=== PATIENT | female | born 1975 | race Caucasian/White ===

== ENCOUNTER 2016-08-11 11:05 | Emergency (ER) | payer BC ==
[2016-08-11 11:21] VITALS: BP 124/70
[2016-08-11] MEDS ORDERED: Fluorescein Sodium TOPICAL* 1 MG TEST ONE (11:24)
[2016-08-11] MEDS ORDERED: BSS OPTH.SOL* BTL ONE (11:24)
[2016-08-11] MEDS ORDERED: Tetracaine 0.5% OPTH.SOL 15ML* BTL ONE (11:26)
--- NOTE | 2016-08-11 11:46 | UC ---
Eye Complaint HPI - HPI Summary HPI Summary: Patient arrives to with CC of right lateral eye pain since 2 days ago which has been progressively getting worse. She states she has had a stye in the past , but this feels different based on the location and the fact that it is more painful the usual. She denies visual disturbances, health problems, MILLER or temporal pain. She wears contacts, but has not been wearing them since onset of pain. Pain is localized to the right lateral canthus of the upper eye lid and radiates upward to the eyebrow. There is noticeable swelling and redness but no injected conjunctiva. Denies other symptoms. She has been using warm compresses without relief. Denies trauma or known FB in the eye. - History of Current Complaint Chief Complaint: UCEye Stated Complaint: EYE ISSUE Hx Obtained From: Patient Hx Last Menstrual Period: 07/23/16 ?: No Onset/Duration: Gradual Onset Timing: Constant Severity Initially: Moderate Severity Currently: Moderate Pain Intensity: 5 Pain Scale Used: 0-10 Numeric Location of Injury: Eye Lid (upper) Character: Foreign Body Sensation Aggravating Factor(s): Contact Lens, Blinking Alleviating Factor(s): Nothing Associated Signs And Symptoms: Positive: Swelling - Risk Factors Penetrating Injury Risk Factor: Negative Globe Rupture Risk Factors: Negative Acute Glaucoma Risk Factors: Eye Inflammation Optic Artery Occlusion Risk Factors: Negative - Allergies/Home Medications Allergies/Adverse Reactions: Allergies Allergy/AdvReac Type Severity Reaction Status Date / Time Sulfa Drugs Allergy Intermediate Shortness Verified 08/11/16 11:10 of Breath Penicillins Allergy Unknown Unknown Verified 08/11/16 11:10 Reaction Details Home Medications: Home Medications Ferrous Sulfate [Feosol] 65 mg PO DAILY 08/11/16 [History Confirmed 08/11/16] Fluoxetine HCl [Prozac] 30 mg PO DAILY 08/11/16 [History Confirmed 08/11/16] Lisinopril [Zestril 5 MG-] 5 mg PO DAILY 08/11/16 [History Confirmed 08/11/16] PMH/Surg Hx/FS Hx/Imm Hx Previously Healthy: Yes Endocrine History Of: Denies: Diabetes, Thyroid Disease Cardiovascular History Of: Reports: Hypertension Denies: Cardiac Disorders Respiratory History Of: Denies: COPD, Asthma GI/ History Of: Denies: Ulcer - Surgical History Surgical History: Yes Surgery Procedure, Year, and Place: Urinary stricture 1974 , left arm nerve release 1991. C section 2004, Gallbladder 2006, C section 2007, Gastric sleeve 2011 - Family History Known Family History: Positive: Hypertension - Social History Occupation: Employed Full-time Lives: With Family Alcohol Use: Rare Substance Use Type: None Smoking Status (MU): Never Smoked Tobacco - Immunization History Most Recent Influenza Vaccination: fall 2015 Review of Systems Constitutional: Negative Skin: Rash Eyes: Eye Redness - and swelling Respiratory: Negative Cardiovascular: Negative Gastrointestinal: Negative Neurovascular: Negative Musculoskeletal: Negative All Other Systems Reviewed And Are Negative: Yes Physical Exam Triage Information Reviewed: Yes Appearance: Well-Appearing, Well-Nourished Vital Signs: Initial Vital Signs Temp 97.3 F 08/11/16 11:14 Pulse 81 08/11/16 11:14 Resp 16 08/11/16 11:14 BP 124/70 08/11/16 11:14 Pulse Ox 98 08/11/16 11:14 Vital Signs Reviewed: Yes Eyes: Positive: Conjunctiva Clear, Other: - right lateral canthus swelling with erythema. painful to palpation ENT Exam: Normal Dental Exam: Normal Neck exam: Normal Neck: Positive: Nontender Respiratory: Positive: Chest non-tender, Lungs clear Cardiovascular Exam: Normal Neurological Exam: Normal Neurological: Positive: Alert Psychological Exam: Normal Psychological: Positive: Normal Response To Family, Age Appropriate Behavior Skin Exam: Normal Procedures - Eye Procedure Alcaine Drops Administered: Yes - tetracaine applied with flouroscein stain. no FB seen. Eye Complaint Course/Dx - Course Course Of Treatment: Pain with swelling and erythema noted over lateral canthus of right upper eye lid radiating to the eyebrow. previous stye. patient wears contacts but has not used them since onset of pain. fluoroscein with vicente lamp used - no FB seen. patient is treated for stye based on signs and sxs. encouraged warm compresses to area, polymyxin drops given to aid in concurrent bacterial cause and follow up with optho if symptoms become worse. no contact use until dissipation of pain at which time contacts should be switched out for new ones. Throw away current eye makeup and mascara. - Differential Dx/Diagnosis Differential Diagnosis/HQI/PQRI: Conjunctivitis, Foreign Body, Other - chalazion , hordeolum Provider Diagnoses: Hordeolum Discharge - Discharge Plan Condition: Stable Disposition: HOME Prescriptions: Polymyx/Trimethoprim OPTH* [Polytrim OPHTH*] 1 drop RIGHT EYE Q3H #1 btl Patient Education Materials: Kianna (ED) Referrals: Jeovany Siddiqui MD [Primary Care Provider] - Additional Instructions: Both internal and external hordeola can be treated with warm compresses, placed off and on for about 15 minutes at a time approximately four times per day. I am also giving you an antibiotic drop to aid in improvement of symptoms. 1-2 drops 6 times daily for 5-7 days. If symptoms become worse, come back to UC or go see an patient financial representative. This will likely take about 1 week to improve completely. Take tylenol or ibuprofen for relief of pain and inflammation. if you notice any visual disturbances, come back to UC immediately.
== END 2016-08-11 11:46 | disposition home or self-care (01) ==
LOC: UCEAST 11:05
DX: H00.019 Hordeolum externum unspecified eye, unspecified eyelid (principal); I10 Essential (primary) hypertension; Z88.0 Allergy status to penicillin; Z88.2 Allergy status to sulfonamides
CPT/HCPCS: 99212; A9270-GY; G0463

== ENCOUNTER 2017-10-12 02:35 | Emergency (ER) | payer BC ==
[2017-10-12] MEDS ORDERED: HYDROcodone/ACETAMIN 5-325 MG* 1 TAB PO ONE (03:05)
[2017-10-12] MEDS ORDERED: predniSONE TAB* 20 MG PO ONE (03:06)
[2017-10-12 05:53] VITALS: BP 148/91
--- NOTE | 2017-10-12 06:55 | ED ---
Cee Richardson Gabriel, scribed for Artemio Bravo MD on 10/12/17 at 0306 . Complex/Multi-Sys Presentation - HPI Summary HPI Summary: This patient is a 42 year old F presenting to [facility] c/o left sided facial/jaw pain that has been intermittent for 3 weeks. The patient rates the pain 8.5/10 in severity and states it radiates throughout the left side of her face. Symptoms aggravated by movement of the face. Symptoms alleviated by nothing, pt is taking 1000 mg of ibuprofen with no relief. Patient denies fever. Pt saw her dentist but they couldnt see anything that looked pathological but they did adjust the crown. She recently had dental work but on the opposite side of her face. - History Of Current Complaint Chief Complaint: EDGeneral Time Seen by Provider: 10/12/17 02:49 Hx Obtained From: Patient Onset/Duration: Lasting Weeks, Still Present Timing: Intermittent, Lasting: Severity Currently: Moderate Severity Initially: Severe Associated Signs And Symptoms: Positive: Other - facial and jaw pain on the left side. Negative: Fever - Allergies/Home Medications Allergies/Adverse Reactions: Allergies Allergy/AdvReac Type Severity Reaction Status Date / Time Penicillins Allergy Unknown Verified 10/12/17 02:41 Reaction Details Sulfa (Sulfonamide Allergy Shortness Verified 10/12/17 02:41 Antibiotics) of Breath Home Medications: Home Medications Amphetamine/Dextroamph ER(NF) [Adderal XR (NF)] 30 mg PO DAILY 10/12/17 [ History Confirmed 10/12/17] PMH/Surg Hx/FS Hx/Imm Hx Endocrine/Hematology History: Denies: Hx Diabetes, Hx Thyroid Disease Cardiovascular History: Reports: Hx Hypertension Denies: Hx Auto Implanted Cardiovert Defib Respiratory History: Denies: Hx Asthma, Hx Chronic Obstructive Pulmonary Disease (COPD) GI History: Denies: Hx Ulcer History: Denies: Hx Benign Prostatic Hyperplasia Psychiatric History: Reports: Hx Attention Deficit Hyperactivity Disorder, Hx Depression - Surgical History Surgery Procedure, Year, and Place: Urinary stricture 1974 , left arm nerve release 1991. C section 2004, Gallbladder 2006, C section 2007, Gastric sleeve 2011 Infectious Disease History: No Infectious Disease History: Denies: Hx Hepatitis, Hx Human Immunodeficiency Virus (HIV), Traveled Outside the [place] in Last 30 Days - Family History Known Family History: Positive: Hypertension - Social History Alcohol Use: Rare Substance Use Type: Reports: None Smoking Status (MU): Never Smoked Tobacco Review of Systems Negative: Fever Positive: Dental Pain, Other - facial pain All Other Systems Reviewed And Are Negative: Yes Physical Exam - Summary Physical Exam Summary: Appearance: Well-appearing, no distress, Well-nourished Skin: Warm, color reflects adequate perfusion Head: Normal Head/Face inspection Eyes: Conjunctiva clear ENT: mild TTP in the maxillary region. There is no swelling, no redness, no warmth, oral pharynx is clear, no lymphadenopathy; dentition normal Neck: Supple, no nodes, no JVD. Respiratory: Lungs clear, Normal breath sounds, no respiratory distress Cardio: RRR, No murmur, pulses normal, brisk capillary refill Neuro: Alert, muscle tone normal, facial symmetry, speech normal, sensory/motor intact Psychological: Normal Triage Information Reviewed: Yes Vital Signs On Initial Exam: Initial Vitals Temp Pulse Resp BP Pulse Ox 97.9 F 82 18 179/113 100 10/12/17 02:36 10/12/17 02:36 10/12/17 02:36 10/12/17 02:36 10/12/17 02:36 Vital Signs Reviewed: Yes Diagnostics - Vital Signs Vital Signs Temp Pulse Resp BP Pulse Ox 10/12/17 02:36 97.9 F 82 18 179/113 100 - Laboratory Lab Results: Lab Results 10/12/17 Range/Units 03:55 ESR 11 (0-14) mm/Hr Lab Statement: Any lab studies that have been ordered have been reviewed, and results considered in the medical decision making process. - CT CT Maxillofacial CT Interpretation Completed By: Radiologist - no evidence of acute pathology. Stable left maxillary sinus retention cyst or polyp Re-Evaluation - Re-Evaluation First Eval Re-Evaluation Time: 05:36 Change: Improved Comment: Pt symptoms improved with PO analgesia. Pt symptoms consistent with trigeminal neuralgia. Will start carbamazepine with Neurology f/u. Complex Multi-Symp Course/Dx - Diagnoses Differential Diagnoses/HQI/PQRI: CVA, Metabolic Abnormality Provider Diagnoses: Trigeminal neuralgia Discharge - Sign-Out/Discharge Documenting (check all that apply): Discharge/Admit/Transfer - Discharge Plan Condition: Improved Disposition: HOME Prescriptions: Carbamazepine 100 mg PO DAILY #7 tab.chew Ibuprofen TAB* [Motrin TAB* 800 MG] 800 mg PO Q6H PRN #15 tab PRN Reason: Pain predniSONE TAB* [Deltasone 20 MG TAB*] 40 mg PO DAILY 3 Days #6 tab traMADol TAB* [Ultram*] 50 mg PO Q6HR PRN #12 tab MDD 200 mg PRN Reason: Pain Patient Education Materials: Trigeminal Neuralgia (ED) Referrals: Maricruz Loo MD [Primary Care Provider] - 2 Days - Billing Disposition and Condition Condition: IMPROVED Disposition: Home The documentation as recorded by the Cee lu Gabriel accurately reflects the service I personally performed and the decisions made by Lawrence tubbs Omari A, MD.
--- NOTE | 2017-10-12 07:50 | RAD ---
HISTORY: left facial pain COMPARISONS: None TECHNIQUE: Multiple contiguous axial CT scans were obtained of the face without intravenous contrast, with coronal and sagittal multiplanar reformations. FINDINGS: BONES: There is no displaced fracture or dislocation. The orbital rim is intact. The zygomatic arch is intact. The pterygoid plates are intact. ORBITS: The globes are round. The optic nerves are symmetric. The extraocular musculature is normal. There is no post septal or intraconal inflammatory change. There is no retrobulbar hematoma. PARANASAL SINUSES: There is a mucous retention cyst versus polypoid mucosal thickening of the left maxillary sinus. The nasal septum is deviated to the left. BRAIN AND SOFT TISSUE: Unremarkable. OTHER: None. IMPRESSION: MILD SINUS MUCOSAL INFLAMMATORY DISEASE, WITHOUT AIR-FLUID LEVEL TO SUGGEST ACUTE SINUSITIS.
== END 2017-10-12 05:51 | disposition home or self-care (01) ==
LOC: ED 02:35
DX: G50.0 Trigeminal neuralgia (principal); R51 Headache; R68.84 Jaw pain
CPT/HCPCS: 36415; 70486; 85652; 99282; J7512

== ENCOUNTER 2017-12-03 14:13 | Emergency (ER) | payer BC ==
[2017-12-03] MEDS ORDERED: traMADol TAB* 50 MG PO ONE (16:27)
[2017-12-03] MEDS ORDERED: predniSONE TAB* 5 MG PO ONE (16:28)
[2017-12-03 18:01] VITALS: BP 121/84
--- NOTE | 2017-12-04 05:57 | ED ---
Neurological HPI - HPI Summary HPI Summary: Patient is a 42-year-old female presenting to the ED with left-sided trigeminal neuralgia exacerbation since yesterday. She was diagnosed approximately 6 weeks ago in the ED with trigeminal neuralgia. She has never had this before. She endorses pain to the left side of the forehead left cheek and left lower jawline. Symptoms are worse with touch and cold items, better with her own tramadol medication however it does not improve completely. Episodes are intermittent lasting several seconds to minutes. Denies any headache. She was placed on Tegretol 200 a.m. and 200 p.m. but was later changed by her PCP to 200 a.m. and 400 p.m. During her ED course, she was also given a short course of steroids. She states she has been asymptomatic times approximate 6 weeks to when she began to flare up again. She has not taken an excess dose of her Tegretol for fear of overdosing. She denies any other symptoms. Denies any tearing from the eye. She continues to be able to eat and drink, stating she must heat softer and warmer foods. She has a neurology follow-up in 3 months. - History of Current Complaint Chief Complaint: EDFacialInjury Stated Complaint: FACIAL PAIN Time Seen by Provider: 12/03/17 14:48 Hx Obtained From: Patient Hx Last Menstrual Period: 07/23/16 Onset/Duration: Sudden Onset Timing: Intermittent Episodes Lasting: Onset Severity: Moderate Current Severity: Moderate Neurological Deficit Location: Facial - left sided only Pain Intensity: 7 Pain Scale Used: 0-10 Numeric Character: Throbbing - and pressure to the left side of the face Aggravating: Stress - and touch Alleviating: Other - medications - Allergy/Home Medications Allergies/Adverse Reactions: Allergies Allergy/AdvReac Type Severity Reaction Status Date / Time Penicillins Allergy Unknown Verified 10/21/17 07:40 Reaction Details Sulfa (Sulfonamide Allergy Shortness Verified 10/21/17 07:40 Antibiotics) of Breath PMH/Surg Hx/FS Hx/Imm Hx Previously Healthy: Yes Endocrine/Hematology History: Denies: Hx Diabetes, Hx Thyroid Disease Cardiovascular History: Reports: Hx Hypertension Denies: Hx Auto Implanted Cardiovert Defib, Hx Pacemaker/ICD Respiratory History: Denies: Hx Asthma, Hx Chronic Obstructive Pulmonary Disease (COPD) GI History: Denies: Hx Ulcer History: Denies: Hx Benign Prostatic Hyperplasia, Hx Renal Disease Sensory History: Denies: Hx Hearing Aid Psychiatric History: Reports: Hx Attention Deficit Hyperactivity Disorder, Hx Depression Denies: Hx Panic Disorder - Surgical History Surgery Procedure, Year, and Place: Urinary stricture 1974 ,. left arm nerve release 1991. C section 2004,. Gallbladder 2007,. C section 2008,. Gastric sleeve 2012,. mirena implant (safe to 3t) - Immunization History Hx Pertussis Vaccination: No Immunizations Up to Date: Yes Infectious Disease History: No Infectious Disease History: Denies: Hx Hepatitis, Hx Human Immunodeficiency Virus (HIV), Traveled Outside the [place] in Last 30 Days - Family History Known Family History: Positive: Hypertension - Social History Occupation: Employed Full-time Lives: With Family Alcohol Use: Rare Hx Substance Use: No Substance Use Type: Reports: None Hx Tobacco Use: No Smoking Status (MU): Never Smoked Tobacco Review of Systems Constitutional: Negative Negative: Fever, Chills, Fatigue Negative: Photophobia, Blurred Vision, Diplopia, Drainage Negative: Epistaxis, Dental Pain, Ear Ache Negative: Palpitations, Chest Pain Negative: Shortness Of Breath, Cough Negative: Arthralgia, Myalgia Neurological: Other - facial pain over trigeminal nerve paths All Other Systems Reviewed And Are Negative: Yes Physical Exam Triage Information Reviewed: Yes Vital Signs On Initial Exam: Initial Vitals Temp Pulse Resp BP Pulse Ox 97.8 F 96 20 142/113 100 12/03/17 14:25 12/03/17 14:25 12/03/17 14:25 12/03/17 14:25 12/03/17 14:25 Vital Signs Reviewed: Yes Appearance: Positive: Well-Appearing, Well-Nourished Skin: Positive: Warm, Skin Color Reflects Adequate Perfusion Head/Face: Positive: Normal Head/Face Inspection Eyes: Positive: EOMI, CONSTANTINO, Conjunctiva Clear Neck: Positive: Supple, Nontender, No Lymphadenopathy Respiratory/Lung Sounds: Positive: Clear to Auscultation Cardiovascular: Positive: RRR, Pulses are Symmetrical in both Upper and Lower Extremities Musculoskeletal: Positive: Strength/ROM Intact Neurological: Positive: Other - pain on light palpation to the left side of face , jaw line and forehead - Sukhdev Coma Scale Best Eye Response: 4 - Spontaneous Best Motor Response: 6 - Obeys Commands Best Verbal Response: 5 - Oriented Coma Scale Total: 15 Diagnostics - Vital Signs Vital Signs Temp Pulse Resp BP Pulse Ox 12/03/17 17:59 97.2 F 73 16 121/84 99 12/03/17 14:25 97.8 F 96 20 142/113 100 - Laboratory Lab Statement: Any lab studies that have been ordered have been reviewed, and results considered in the medical decision making process. Course/Dx - Course Course Of Treatment: During the course of treatment, the patient is evaluated for left-sided trigeminal neuralgia. She is tender on light palpation over maxillary branch and mandibular branch of the trigems, however ophthalmic branch is spared. She states this is intermittent and worse with touch and cold food items. She was diagnosed with this in the ED 6 weeks ago placed on Tegretol and a short course of steroids which improved her symptoms. She has remained asymptomatic until yesterday when her symptoms cleared up. she will likely benefit from another short course of steroids as well as increase her Tegretol to 200 mg 4 times daily. I have also refilled her tramadol as this has been eating her in her pain at home. She is okay with this plan and will follow-up with her PCP regarding further treatment and workup. - Differential Dx Differential Diagnoses Neuro: Positive: Temporal Arteritis, Transient Ischemic Attack, Vasovagal Reaction - Diagnoses Provider Diagnoses: Trigeminal neuralgia of left side of face Discharge - Sign-Out/Discharge Documenting (check all that apply): Patient Departure - Discharge Plan Condition: Stable Disposition: HOME Prescriptions: methylPREDNISolone [Medrol] 4 mg PO DAILY #4 tab.ds.pk traMADol TAB* [Ultram*] 50 mg PO Q8H PRN #12 tab MDD 3 PRN Reason: Pain Patient Education Materials: Trigeminal Neuralgia (ED) Referrals: Maricruz Loo MD [Primary Care Provider] - Additional Instructions: Please follow-up with your doctor as soon as possible Tegretol 4 times daily until follow-up Medrol Dosepak as prescribed - Billing Disposition and Condition Condition: STABLE Disposition: Home
== END 2017-12-03 17:59 | disposition home or self-care (01) ==
LOC: ED 14:13
DX: G50.0 Trigeminal neuralgia (principal); Z88.0 Allergy status to penicillin; Z88.2 Allergy status to sulfonamides
CPT/HCPCS: 99282; A9270-GY; J7512

== ENCOUNTER → 2018-06-11 15:54 | Emergency (ER) | payer BC ==
[~2018-06-11 15:54] MED LIST: Ciprofloxacin TAB* 500 MG PO ONE; Ketorolac INJ* 30 MG/ML 1 ML VIAL IV PUSH ONE; NS 0.9% 1000 ML** 1,000 ML IV ONE; Ondansetron INJ* 2 MG/ML VIAL IV ONE; Ondansetron ODT TAB* 4 MG PO ONE
--- NOTE | 2018-06-11 17:55 | ED ---
Abdominal Pain/Female - HPI Summary HPI Summary: 43-year-old female presents with sudden onset of mid abdominal cramping with nausea, anorexia, and diarrhea around midday 6 days ago. States pain is fairly constant and occasionally radiates through to her back. Worsens with eating. States she is having 4-5 episodes of loose to watery stools per day. States stool has been slightly dark in color. Patient has Mirena IUD and is currently spotting. Denies fever, chills, chest pain, shortness of breath, vomiting, blood in stool, dysuria, frequency, urgency, vaginal discharge, or dyspareunia. - History of Current Complaint Chief Complaint: EDAbdPain Stated Complaint: ABD PAIN Time Seen by Provider: 06/11/18 17:51 Hx Obtained From: Patient Hx Last Menstrual Period: 07/23/16 Pain Intensity: 7 Allergies/Adverse Reactions: Allergies Allergy/AdvReac Type Severity Reaction Status Date / Time Penicillins Allergy Unknown Verified 10/21/17 07:40 Reaction Details Sulfa (Sulfonamide Allergy Shortness Verified 10/21/17 07:40 Antibiotics) of Breath PMH/Surg Hx/FS Hx/Imm Hx Endocrine/Hematology History: Reports: Hx Anemia Denies: Hx Diabetes, Hx Thyroid Disease Cardiovascular History: Reports: Hx Hypertension Denies: Hx Coronary Artery Disease, Hx Pacemaker/ICD Respiratory History: Denies: Hx Asthma, Hx Chronic Obstructive Pulmonary Disease (COPD) GI History: Reports: Hx Gall Bladder Disease, Hx Gastroesophageal Reflux Disease Denies: Hx Cirrhosis, Hx Crohn's Disease, Hx Diverticulosis, Hx Gastrointestinal Bleed, Hx Obstructive Bowel, Hx Ulcer History: Reports: Hx Kidney Stones Denies: Hx Renal Disease Sensory History: Denies: Hx Hearing Aid Neurological History: Reports: Hx Nerve Disease - Trigeminal neuralgia Psychiatric History: Reports: Hx Attention Deficit Hyperactivity Disorder, Hx Depression Denies: Hx Panic Disorder - Surgical History Surgery Procedure, Year, and Place: Urinary stricture 1974 ,. left radial nerve release 1991. C section 2004,. Gallbladder 2007,. C section 2008,. Gastric sleeve 2012,. mirena implant (safe to 3t) Infectious Disease History: No Infectious Disease History: Denies: Hx Hepatitis, Hx Human Immunodeficiency Virus (HIV), Traveled Outside the [place] in Last 30 Days - Family History Known Family History: Positive: Hypertension - Social History Occupation: Employed Full-time Lives: With Family Alcohol Use: Rare Hx Substance Use: No Substance Use Type: Reports: None Hx Tobacco Use: No Smoking Status (MU): Never Smoked Tobacco Review of Systems Negative: Fever, Chills Negative: Palpitations, Chest Pain Negative: Shortness Of Breath, Cough Positive: Abdominal Pain, Diarrhea, Nausea. Negative: Vomiting Negative: dysuria, discharge, frequency, flank pain, hematuria, urgency Musculoskeletal: Negative Skin: Negative Neurological: Negative All Other Systems Reviewed And Are Negative: Yes Physical Exam - Summary Physical Exam Summary: GENERAL APPEARANCE: Well developed, obese, and cooperative, and appears to be in no acute distress. CARDIAC: Normal S1 and S2. No S3, S4 or murmurs. Rhythm is regular. There is no peripheral edema, cyanosis or pallor. Extremities are warm and well perfused. Capillary refill is less than 2 seconds. Peripheral pulses intact. LUNGS: Clear to auscultation without rales, rhonchi, wheezing or diminished breath sounds. ABDOMEN: Positive bowel sounds. Soft, nondistended. Mild RUQ and RLQ tenderness without guarding or rebound. No masses or hepatosplenomegally. No CVA tenderness. MUSKULOSKELETAL: ROM intact to all extremities. No joint erythema or tenderness. Normal muscular development. Normal gait. BACK: Examination of the spine reveals normal gait and posture, no spinal deformity or tenderness, decreased range of motion or muscular spasm. EXTREMITIES: No significant deformity or joint abnormality. No edema. NEUROLOGICAL: Awake, alert, oriented x 4. SKIN: Skin normal color, texture and turgor with no lesions or eruptions. Triage Information Reviewed: Yes Vital Signs On Initial Exam: Initial Vitals Temp Pulse Resp BP Pulse Ox 97.4 F 76 18 128/96 99 06/11/18 16:00 06/11/18 16:00 06/11/18 16:00 06/11/18 16:00 06/11/18 16:00 Vital Signs Reviewed: Yes Diagnostics - Vital Signs Vital Signs Temp Pulse Resp BP Pulse Ox 06/11/18 16:00 97.4 F 76 18 128/96 99 - Laboratory Result Diagrams: 06/11/18 18:31 06/11/18 18:31 Lab Statement: Any lab studies that have been ordered have been reviewed, and results considered in the medical decision making process. Re-Evaluation - Re-Evaluation First Eval Re-Evaluation Time: 19:45 Change: Improved Comment: Patient reports abdominal pain improved. Nausea subsided. No further episodes of diarrhea at this time. Reviewed lab work with patient. Urine still pending. Patient inquirying about radiological testing. Discussed at length the limited value of a plain x-ray as well as the risks and benefits of a CT scan which would be the more definitive study. Explained to patient that I have a low suspicion for an acute abdomen based on the findings so far and I feel a watchful waiting with close follow up with PCP is a reaonable approach however she states she would like to consider while waiting for the urine results. Abdominal Pain Fem Course/Dx - Course Course Of Treatment: 43-year-old female presents with sudden onset of mid abdominal cramping with nausea, anorexia, and diarrhea around midday 6 days ago. States pain is fairly constant and occasionally radiates through to her back. Worsens with eating. States she is having 4-5 episodes of loose to watery stools per day. States stool has been slightly dark in color. Patient has Mirena IUD and is currently spotting. Denies fever, chills, chest pain, shortness of breath, vomiting, blood in stool, dysuria, frequency, urgency, vaginal discharge, or dyspareunia. Afebrile. Vital signs stable. Exam reveals an obese adult female in no acute distress. She had some mild right upper and lower quadrant tenderness without rebound or guarding and otherwise unremarkable exam. Patient received 1 L normal saline, ondansetron 8 mg IV, and ketorolac 50 mg IV with improvement in her symptoms. CBC normal. CMP with a mildly elevated alkaline phosphatase of 111 but otherwise normal. CRP normal. Serum negative. Urinalysis showed 1+ protein, trace ketones , 3+ blood, 2+ leukocyte esterase, and 3+ white blood cells and red blood cells under high-power field suggestive of a possible UTI. Urine culture is pending. These results were reviewed with the patient and after extensive conversation regarding the risks and benefits of radiological evaluation patient is electing at this time for watchful waiting and follow up with her primary care provider within 5 days. I am going to treat her for possible UTI with ciprofloxacin 500 mg twice a day 5 days with first dose given in the emergency room. She was given 2 doses of ondansetron ODT 4 mg for home to use every 6 hours as needed for nausea or vomiting and also given a prescription for some additional tablets if needed. Anticipatory guidance and warning symptoms were reviewed with the patient. She verbalizes understanding and agrees with plan of care. - Diagnoses Provider Diagnoses: Acute abdominal pain, Diarrhea Discharge - Sign-Out/Discharge Documenting (check all that apply): Patient Departure Patient Received Moderate/Deep Sedation with Procedure: No - Discharge Plan Condition: Stable Disposition: HOME Prescriptions: Ciprofloxacin HCl 500 mg PO BID #9 tablet Ondansetron [Ondansetron Odt] 4 mg PO Q6HR PRN #6 tab.rapdis PRN Reason: Nausea/Vomiting Patient Education Materials: Acute Diarrhea (ED), Acute Abdominal Pain (ED) Referrals: Maricruz Loo MD [Primary Care Provider] - 5 Days Additional Instructions: Be sure to drink plenty of fluids. Avoid beverages containing caffeine or artificial sweeteners as these can worsen symptoms. Be sure to eat a well balanced diet. Boiled starches and cereals (potatoes, rice , cream of wheat, oatmeal) as well as food such as crackers, toast, bananas, soups and boiled vegetables are usually recommended if you are having watery diarrhea. Use an over the counter pain medication such as acetaminophen (Tylenol) or ibuprofen (Advil, Motrin) according to directions as needed for aches and pains. Follow up with your primary care provider within 5 days for recheck of symptoms. Seek immediate medical attention in the emergency room if you have fever greater than 100.5 F, have severe abdominal pain, persistent vomiting, blood in your vomit or stool, you become weak or dizzy, or have any worsening of symptoms. - Billing Disposition and Condition Condition: STABLE Disposition: Home
[2018-06-11 18:40] LABS: ABS Basophils 0.1 10^3/ul (0-0.2); ABS Eosinophils 1.6 10^3/ul (0-0.6); ABS Lymphocytes 2.2 10^3/ul (1.0-4.8); ABS Monocytes 0.4 10^3/ul (0-0.8); ABS Neutrophils 3.6 10^3/ul (1.5-7.7); ABS Nucleated RBC 0 10^3/ul; Eosinophil % 19.9 %; Hematocrit 42 % (35-47); Hemoglobin 14.6 g/dl (12.0-16.0); Lymphocyte % 27.9 %; Mean Corpuscular HGB Conc 34 g/dl (31-36); Mean Corpuscular Hemoglobin 33 pg (27-31); Mean Corpuscular Volume 96 fL (80-97); Mean Platelet Volume 7.4 fL (7.4-10.4); Nucleated Red Blood Cells % 0.1; Platelet Count 254 10^3/ul (150-450); Red Blood Count 4.41 10^6/ul (4.00-5.40); Red Cell Distribution Width 13 % (10.5-15); White Blood Count 7.9 10^3/ul (3.5-10.8)
[2018-06-11 18:58] LABS: ALT 14 U/L (7-52); AST 17 U/L (13-39); Albumin 4.2 g/dL (3.2-5.2); Albumin/Globulin Ratio 1.7 (1-3); Alkaline Phosphatase 111 U/L (34-104); Anion Gap 5 mmol/L (2-11); BUN/Creatinine Ratio 9.5 (8-20); Blood Urea Nitrogen 7 mg/dL (6-24); C Reactive Protein 6.58 mg/L (<8.01); CO2 Carbon Dioxide 27 mmol/L (22-32); Chloride 105 mmol/L (101-111); EGFR African American 103.2 (>60); EGFR Non-African American 85.3 (>60); Globulin 2.5 g/dL (2-4); Glucose 90 mg/dL (70-100); Potassium 4.1 mmol/L (3.5-5.0); Sodium 137 mmol/L (135-145); Total Protein 6.7 g/dL (6.4-8.9)
[2018-06-11 19:04] LABS: HCG Pregnancy < 0.60 mIU/mL
[2018-06-11 20:32] LABS: Urine Appearance Cloudy; Urine Bacteria Absent (Absent); Urine Bilirubin Negative (Negative); Urine Blood 3+ (Negative); Urine Color Yellow; Urine Glucose Negative (Negative); Urine Ketones Trace (Negative); Urine Nitrite Negative (Negative); Urine Protein 1+(30 mg/dL) (Negative); Urine Red Blood Cell 3+(>10/hpf) (Absent); Urine Specific Gravity 1.024 (1.010-1.030); Urine Squamous Epithelial Cell Present (Absent); Urine Urobilinogen Negative (Negative); Urine White Blood Cell 3+(>20/hpf) (Absent)
[2018-06-11 21:28] VITALS: BP 117/71
== END | disposition home or self-care (01) ==
LOC: ED 15:54
DX: R10.11 Right upper quadrant pain (principal); R10.31 Right lower quadrant pain; R19.7 Diarrhea, unspecified; R11.0 Nausea; Z32.02 Encounter for pregnancy test, result negative; Z97.5 Presence of (intrauterine) contraceptive device; Z88.0 Allergy status to penicillin; Z88.2 Allergy status to sulfonamides; Z90.49 Acquired absence of other specified parts of digestive tract; Z98.84 Bariatric surgery status
CPT/HCPCS: 36415; 80053; 81003; 81015; 83690; 84702; 85025; 86140; 87086; 96374; 96375; 99283; A9270-GY; J1885; J2405

== ENCOUNTER → 2018-06-17 15:03 | Emergency (ER) | payer BC ==
[~2018-06-17 15:03] MED LIST changes: +Al Hydrox/Mg Hydrox/Simet LIQ* 30 ML UDC PO ONE; -Ciprofloxacin TAB* 500 MG PO ONE; +Famotidine TAB* 20 MG PO ONE; -Ketorolac INJ* 30 MG/ML 1 ML VIAL IV PUSH ONE; -NS 0.9% 1000 ML** 1,000 ML IV ONE; -Ondansetron INJ* 2 MG/ML VIAL IV ONE; -Ondansetron ODT TAB* 4 MG PO ONE; +Pantoprazole TAB * 40 MG TAB PO ONE; +Sucralfate TAB* 1 GM PO ONE
[2018-06-17 16:13] LABS: ABS Basophils 0.1 10^3/ul (0-0.2); ABS Eosinophils 1.7 10^3/ul (0-0.6); ABS Lymphocytes 1.8 10^3/ul (1.0-4.8); ABS Monocytes 0.5 10^3/ul (0-0.8); ABS Neutrophils 5.2 10^3/ul (1.5-7.7); ABS Nucleated RBC 0 10^3/ul; Eosinophil % 18.4 %; Hematocrit 44 % (35-47); Hemoglobin 15.1 g/dl (12.0-16.0); Lymphocyte % 19.5 %; Mean Corpuscular HGB Conc 35 g/dl (31-36); Mean Corpuscular Hemoglobin 33 pg (27-31); Mean Corpuscular Volume 96 fL (80-97); Mean Platelet Volume 7.4 fL (7.4-10.4); Nucleated Red Blood Cells % 0; Platelet Count 271 10^3/ul (150-450); Red Blood Count 4.57 10^6/ul (4.00-5.40); Red Cell Distribution Width 12 % (10.5-15); White Blood Count 9.3 10^3/ul (3.5-10.8)
[2018-06-17 16:15] LABS: INR 0.97 (0.77-1.02)
[2018-06-17 16:29] LABS: ALT 16 U/L (7-52); AST 19 U/L (13-39); Albumin 4.3 g/dL (3.2-5.2); Albumin/Globulin Ratio 1.7 (1-3); Alkaline Phosphatase 100 U/L (34-104); Anion Gap 6 mmol/L (2-11); BUN/Creatinine Ratio 6.8 (8-20); Blood Urea Nitrogen 5 mg/dL (6-24); C Reactive Protein 2.71 mg/L (<8.01); CO2 Carbon Dioxide 28 mmol/L (22-32); Calcium 9.5 mg/dL (8.6-10.3); Chloride 104 mmol/L (101-111); EGFR African American 103.2 (>60); EGFR Non-African American 85.3 (>60); Globulin 2.6 g/dL (2-4); Glucose 97 mg/dL (70-100); Potassium 4.3 mmol/L (3.5-5.0); Sodium 138 mmol/L (135-145); Total Protein 6.9 g/dL (6.4-8.9)
[2018-06-17 16:34] LABS: HCG Pregnancy < 0.60 mIU/mL
--- NOTE | 2018-06-17 16:51 | ED ---
Abdominal Pain/Female - HPI Summary HPI Summary: Pt is a 43 y/o female who presents to the ED c/o abdominal pain. She began with a stomach virus 1.5 weeks ago. Pt was here 4 days ago with diffuse abdominal pain and bloating. A CT A/P was negative. 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 Her diffuse cramping and diarrhea has now subsided, however now pt has severe RUQ tenderness. The pain is rated a 9/10 in severity, radiates to her back, and is made worse with eating. She also c/o nausea but denies any reflux or urinary symptoms. Pt took a hydrocodone this morning. PMHx gallstone pancreatitis. PSHx cholecystectomy and sleeve gastrectomy. FHx ulcers. - History of Current Complaint Chief Complaint: EDAbdPain Stated Complaint: UPPER ABDOMINAL PAIN Time Seen by Provider: 06/17/18 16:46 Hx Obtained From: Patient Hx Last Menstrual Period: 07/23/16 Onset/Duration: Lasting Weeks - 1.5, Worse Since Timing: Constant Severity Currently: Severe Pain Intensity: 9 Pain Scale Used: 0-10 Numeric Location: Discrete At: RUQ Radiates: Yes Radiates to: Back Aggravating Factor(s): Food Alleviating Factor(s): Nothing Associated Signs and Symptoms: Positive: Back Pain, Nausea. Negative: Urinary Symptoms, Diarrhea Allergies/Adverse Reactions: Allergies Allergy/AdvReac Type Severity Reaction Status Date / Time Penicillins Allergy Unknown Verified 10/21/17 07:40 Reaction Details Sulfa (Sulfonamide Allergy Shortness Verified 10/21/17 07:40 Antibiotics) of Breath PMH/Surg Hx/FS Hx/Imm Hx Endocrine/Hematology History: Reports: Hx Anemia Denies: Hx Diabetes, Hx Thyroid Disease Cardiovascular History: Reports: Hx Hypertension Denies: Hx Auto Implanted Cardiovert Defib, Hx Coronary Artery Disease, Hx Pacemaker/ICD Respiratory History: Denies: Hx Asthma, Hx Chronic Obstructive Pulmonary Disease (COPD) GI History: Reports: Hx Gall Bladder Disease, Hx Gastroesophageal Reflux Disease Denies: Hx Cirrhosis, Hx Crohn's Disease, Hx Diverticulosis, Hx Gastrointestinal Bleed, Hx Obstructive Bowel, Hx Ulcer History: Reports: Hx Kidney Stones Denies: Hx Benign Prostatic Hyperplasia, Hx Renal Disease Sensory History: Denies: Hx Hearing Aid Neurological History: Reports: Hx Nerve Disease - Trigeminal neuralgia Psychiatric History: Reports: Hx Attention Deficit Hyperactivity Disorder, Hx Depression Denies: Hx Panic Disorder - Surgical History Surgery Procedure, Year, and Place: Urinary stricture 1974 ,. left radial nerve release 1991. 2004,. Gallbladder 2006,. 2007,. Gastric sleeve 2011,. mirena implant (safe to 3t) Infectious Disease History: No Infectious Disease History: Denies: Hx Hepatitis, Hx Human Immunodeficiency Virus (HIV), Traveled Outside the [place] in Last 30 Days - Family History Known Family History: Positive: Hypertension - Social History Alcohol Use: Rare Hx Substance Use: No Substance Use Type: Reports: None Hx Tobacco Use: No Smoking Status (MU): Never Smoked Tobacco Review of Systems Positive: Abdominal Pain - RUQ, Diarrhea - resolved, Nausea. Negative: Other - reflux Genitourinary: Negative Positive: Myalgia - radiates to back All Other Systems Reviewed And Are Negative: Yes Physical Exam - Summary Physical Exam Summary: Appearance: Well appearing, no pain distress Skin: warm, dry, reflects adequate perfusion Head/face: normal Eyes: EOMI, CONSTANTINO ENT: mucous membranes moist Neck: supple, non-tender Respiratory: CTA, breath sounds present Cardiovascular: RRR, pulses symmetrical, no LE edema Abdomen: non-tender, soft, palpable discomfort of right lower back Bowel Sounds: present Musculoskeletal: normal, strength/ROM intact Neuro: normal, sensory motor intact, A&Ox3 Triage Information Reviewed: Yes Vital Signs On Initial Exam: Initial Vitals Temp Pulse Resp BP Pulse Ox 97.1 F 82 19 142/98 99 06/17/18 15:12 06/17/18 15:12 06/17/18 15:12 06/17/18 15:12 06/17/18 15:12 Vital Signs Reviewed: Yes Diagnostics - Vital Signs Vital Signs Temp Pulse Resp BP Pulse Ox 06/17/18 15:12 97.1 F 82 19 142/98 99 - Laboratory Lab Results: Lab Results 06/17/18 06/17/18 06/17/18 Range/Units 15:57 15:57 15:57 WBC 9.3 (3.5-10.8) 10^3/ul RBC 4.57 (4.00-5.40) 10^6/ul Hgb 15.1 (12.0-16.0) g/dl Hct 44 (35-47) % MCV 96 (80-97) fL MCH 33 H (27-31) pg MCHC 35 (31-36) g/dl RDW 12 (10.5-15) % Plt Count 271 (150-450) 10^3/ul MPV 7.4 (7.4-10.4) fL Neut % (Auto) 56.2 % Lymph % (Auto) 19.5 % Bos[place] % (Auto) 5.0 % Eos % (Auto) 18.4 % Baso % (Auto) 0.9 % Absolute Neuts (auto) 5.2 (1.5-7.7) 10^3/ul Absolute Lymphs (auto) 1.8 (1.0-4.8) 10^3/ul Absolute Monos (auto) 0.5 (0-0.8) 10^3/ul Absolute Eos (auto) 1.7 H (0-0.6) 10^3/ul Absolute Basos (auto) 0.1 (0-0.2) 10^3/ul Absolute Nucleated RBC 0 10^3/ul Nucleated RBC % 0 INR (Anticoag Therapy) 0.97 (0.77-1.02) Sodium 138 (135-145) mmol/L Potassium 4.3 (3.5-5.0) mmol/L Chloride 104 (101-111) mmol/L Carbon Dioxide 28 (22-32) mmol/L Anion Gap 6 (2-11) mmol/L BUN 5 L (6-24) mg/dL Creatinine 0.74 (0.51-0.95) mg/dL Est GFR ( Amer) 103.2 (>60) Est GFR (Non-Af Amer) 85.3 (>60) BUN/Creatinine Ratio 6.8 L (8-20) Glucose 97 (70-100) mg/dL Lactic Acid (0.5-2.0) mmol/L Calcium 9.5 (8.6-10.3) mg/dL Total Bilirubin 0.60 (0.2-1.0) mg/dL AST 19 (13-39) U/L ALT 16 (7-52) U/L Alkaline Phosphatase 100 (34-104) U/L C-Reactive Protein 2.71 (<8.01) mg/L Total Protein 6.9 (6.4-8.9) g/dL Albumin 4.3 (3.2-5.2) g/dL Globulin 2.6 (2-4) g/dL Albumin/Globulin Ratio 1.7 (1-3) Lipase 26 (11.0-82.0) U/L Beta HCG, Quant < 0.60 mIU/mL 06/17/18 Range/Units 15:57 WBC (3.5-10.8) 10^3/ul RBC (4.00-5.40) 10^6/ul Hgb (12.0-16.0) g/dl Hct (35-47) % MCV (80-97) fL MCH (27-31) pg MCHC (31-36) g/dl RDW (10.5-15) % Plt Count (150-450) 10^3/ul MPV (7.4-10.4) fL Neut % (Auto) % Lymph % (Auto) % [place] % (Auto) % Eos % (Auto) % Baso % (Auto) % Absolute Neuts (auto) (1.5-7.7) 10^3/ul Absolute Lymphs (auto) (1.0-4.8) 10^3/ul Absolute Monos (auto) (0-0.8) 10^3/ul Absolute Eos (auto) (0-0.6) 10^3/ul Absolute Basos (auto) (0-0.2) 10^3/ul Absolute Nucleated RBC 10^3/ul Nucleated RBC % INR (Anticoag Therapy) (0.77-1.02) Sodium (135-145) mmol/L Potassium (3.5-5.0) mmol/L Chloride (101-111) mmol/L Carbon Dioxide (22-32) mmol/L Anion Gap (2-11) mmol/L BUN (6-24) mg/dL Creatinine (0.51-0.95) mg/dL Est GFR ( Amer) (>60) Est GFR (Non-Af Amer) (>60) BUN/Creatinine Ratio (8-20) Glucose (70-100) mg/dL Lactic Acid 0.7 (0.5-2.0) mmol/L Calcium (8.6-10.3) mg/dL Total Bilirubin (0.2-1.0) mg/dL AST (13-39) U/L ALT (7-52) U/L Alkaline Phosphatase (34-104) U/L C-Reactive Protein (<8.01) mg/L Total Protein (6.4-8.9) g/dL Albumin (3.2-5.2) g/dL Globulin (2-4) g/dL Albumin/Globulin Ratio (1-3) Lipase (11.0-82.0) U/L Beta HCG, Quant mIU/mL Result Diagrams: 06/17/18 15:57 06/17/18 15:57 Lab Statement: Any lab studies that have been ordered have been reviewed, and results considered in the medical decision making process. Re-Evaluation - Re-Evaluation First Eval Re-Evaluation Time: 17:22 Change: Improved Comment: Pt feels completely better. Abdominal Pain Fem Course/Dx - Course Course Of Treatment: Nurse's notes reviewed. Patient with a history of gallstone pancreatitis status post removal of gallbladder. Her lipase is negative as are her gallbladder/liver enzymes. GI is involved and states that they wish to do endoscopy on her if her pain does not improve. The patient's pain was much better with GI treatments which will continue outpatient. She'll follow-up with GI and her primary care physician. - Diagnoses Differential Diagnosis: Positive: Constipation, Gall Bladder Disease, Irritable Bowel Syndrome, Ovarian Cyst, Pancreatitis, Peptic Ulcer Disease Provider Diagnoses: Acute gastritis - Provider Notifications Discussed Care Of Patient With: Mame Ojeda Time Discussed With Above Provider: 17:00 Instructed by Provider To: Other - If pt is still in pain Dr. Olmedo will perform an upper endoscopy early next week. Discharge - Sign-Out/Discharge Documenting (check all that apply): Patient Departure - Discharge Patient Received Moderate/Deep Sedation with Procedure: No - Discharge Plan Condition: Improved Disposition: HOME Prescriptions: Famotidine TAB* [Pepcid 20 MG TAB*] 20 mg PO BID #20 tab Pantoprazole TAB * [Protonix TAB*] 40 mg PO DAILY #30 tab Sucralfate TAB* [Carafate*] 1 gm PO ACHS #40 tab Patient Education Materials: Gastritis (ED) Referrals: Hernan Olmedo MD [Medical Doctor] - Maricruz Loo MD [Primary Care Provider] - Additional Instructions: Avoid alcohol, caffeine, ibuprofen/Aleve/aspirin a related medications. Avoid spicy foods. Get plenty of sleep. Hydrate well. Call your GI doctor to schedule follow-up for next week as you may need endoscopy. Return if worse, vomiting blood, dark or black stools, worse or other concerns. - Billing Disposition and Condition Condition: IMPROVED Disposition: Home - Attestation Statements Document Initiated by Precious: Yes Documenting Scribe: Faustina Joiner Provider For Whom Precious is Documenting (Include Credential): Aman Simon MD Scribe Attestation: Faustina Richardson, scribed for Aman Simon MD on 06/17/18 at 1828. Scribe Documentation Reviewed: Yes Provider Attestation: The documentation as recorded by the Faustina lu accurately reflects the service I personally performed and the decisions made by , Aman Simon MD Status of Scribe Document: Viewed
[2018-06-17 17:46] VITALS: BP 138/87
== END | disposition home or self-care (01) ==
LOC: ED 15:03
DX: K29.00 Acute gastritis without bleeding (principal); Z90.49 Acquired absence of other specified parts of digestive tract; Z98.84 Bariatric surgery status; Z88.0 Allergy status to penicillin; Z88.2 Allergy status to sulfonamides
CPT/HCPCS: 36415; 80053; 83605; 83690; 84702; 85025; 85610; 86140; 99283; A9270-GY

== ENCOUNTER 2019-05-08 09:45 | Emergency (ER) | payer BC ==
[2019-05-08 09:59] VITALS: BP 150/96
--- NOTE | 2019-05-08 10:22 | UC ---
Ear Complaint HPI - HPI Summary HPI Summary: has had history trigeminal neuralgia. 1 mo ago had dental surgery thinking L ear pain was due to dental proble. ear pain has not resolved, saw [facility] 10 day sago and no earinfection found. she cont to have sharp shooting pain in upper L face into L ear. is taking ibuprofen and gabapentin with some relief also recently decreased her prescribed dose gabapentin and has been in touch with neurologist to increase dose - History of Current Complaint Chief Complaint: UCEar Stated Complaint: EAR PAIN Time Seen by Provider: 05/08/19 10:06 Hx Obtained From: Patient Hx Last Menstrual Period: 03/30/20 ?: No Onset/Duration: Still Present Severity Initially: Severe Severity Currently: Severe - intermittent pain Pain Intensity: 8 Aggravating Factors: Nothing Alleviating Factors: Nothing Related History: Other (Noted In Comments) - trigeminal neuralgia - Allergies/Home Medications Allergies/Adverse Reactions: Allergies Allergy/AdvReac Type Severity Reaction Status Date / Time Penicillins Allergy Unknown Verified 05/08/19 09:59 Reaction Details Sulfa (Sulfonamide Allergy Shortness Verified 05/08/19 09:59 Antibiotics) of Breath Home Medications: Home Medications Cholecalciferol TAB* [Vitamin D TAB*] 1,000 unit PO WEEKLY 05/08/19 [History Confirmed 05/08/19] Dextroamphetamine/Amphetamine [Adderall 20 mg Tablet] 1 tab PO DAILY WITH MEAL 05/08/19 [History Confirmed 05/08/19] PMH/Surg Hx/FS Hx/Imm Hx Previously Healthy: Yes Neurological History: Other - trigemnal neuralgia Psychological History: Anxiety, Depression - Surgical History Surgical History: Yes Surgery Procedure, Year, and Place: Urinary stricture 1974 ,. left radial nerve release 1991. 2004,. Gallbladder 2006,. 2007,. Gastric sleeve 2011,. mirena implant (safe to 3t) - Family History Known Family History: Positive: Hypertension - Social History Occupation: Employed Full-time Lives: With Family Alcohol Use: Rare Substance Use Type: None Smoking Status (MU): Never Smoked Tobacco - Immunization History Most Recent Influenza Vaccination: fall 2015 Review of Systems All Other Systems Reviewed And Are Negative: Yes Constitutional: Positive: Negative. Negative: Fever Skin: Positive: Negative. Negative: Rash ENT: Positive: Ear Ache. Negative: Dental Pain - was checked by oral surgeon after extractions Respiratory: Positive: Negative Cardiovascular: Positive: Negative Musculoskeletal: Positive: Negative Psychological: Positive: Negative Is Patient Immunocompromised?: No Physical Exam Triage Information Reviewed: Yes Appearance: Well-Appearing, No Pain Distress, Well-Nourished Vital Signs: Initial Vital Signs Temp 97.3 F 05/08/19 09:52 Pulse 73 05/08/19 09:52 Resp 18 05/08/19 09:52 BP 150/96 05/08/19 09:52 Pulse Ox 100 05/08/19 09:52 Vital Signs Reviewed: Yes Eyes: Positive: Conjunctiva Clear ENT: Positive: Pharynx normal, TMs normal, Other - no facial swelling or redness. Negative: Dental tenderness, Sinus tenderness Dental Exam: Normal Dental: Positive: Other: - well healed gum - areas dental extraction Neck exam: Normal Neck: Positive: No Lymphadenopathy Respiratory Exam: Normal Respiratory: Positive: Lungs clear Cardiovascular Exam: Normal Musculoskeletal Exam: Normal Musculoskeletal: Positive: Other: - full ROM jaw Neurological Exam: Normal Neurological: Positive: Alert Psychological Exam: Normal Skin Exam: Normal Skin: Negative: Rashes, Significant Lesion(s) Ear Complaint Course/Dx - Differential Dx/Diagnosis Differential Diagnosis/HQI/PQRI: Cellulitis, Cerumen Impaction, Foreign Body, Otitis Externa, Otitis Media, TMJ Syndrome, Trigeminal Nueralgia Provider Diagnosis: Trigeminal neuralgia of left side of face Discharge ED - Sign-Out/Discharge Documenting (check all that apply): Patient Departure All imaging exams completed and their final reports reviewed: No Studies - Discharge Plan Condition: Good Disposition: HOME Patient Education Materials: Earache (ED) Referrals: Maricruz Loo MD [Primary Care Provider] - Additional Instructions: there is no evidence of a left ear infection on exam today. follow-up with your neurologist to discuss treatment for your trigeminal neuropathy - Billing Disposition and Condition Condition: GOOD Disposition: Home
== END 2019-05-08 10:26 | disposition home or self-care (01) ==
LOC: UCEAST 09:45
DX: G50.0 Trigeminal neuralgia (principal); Z88.0 Allergy status to penicillin; Z88.2 Allergy status to sulfonamides
CPT/HCPCS: 99211; G0463

== ENCOUNTER 2019-05-13 08:30 | Emergency (ER) | payer BC ==
[2019-05-13] MEDS ORDERED: HYDROcodone/ACETAMIN 5-325 MG* 1 TAB PO ONE (11:27)
[2019-05-13] MEDS ORDERED: Phenytoin IV(*) 1,000 MG in NS 0.9% 250 ML* 180 ML IV ONE (12:49)
[2019-05-13] MEDS ORDERED: [UNRECOGNIZED DRUG - OTHER] IVPB ONE (14:00)
[2019-05-13] MEDS ORDERED: NS IVPB ONE (14:00)
[2019-05-13] MEDS ORDERED: FOSPHENYTOIN IVPB ONE (14:00)
[2019-05-13 15:48] VITALS: BP 125/87
--- NOTE | 2019-05-13 15:50 | ED ---
Throat Pain/Nasal Congestion - HPI Summary HPI Summary: This patient is a 44-year-old female presenting to the ED with left-sided inner ear pain radiating to the left cheek bone. History of trigeminal neuralgia and states this feels similar. Endorses the pain as a throbbing, intermittent and burning sensation. Denies any pain to the forehead or to the chin. Denies any pain to the right side of the face. No tearing from the eye. Denies any headaches, however endorses one headache yesterday which is since resolved. She is currently on gabapentin 600 mg twice a day, this was recently increased and prior to that was 300 mg twice a day for her trigeminal neuralgia. She has no other focal neuro deficits, no weakness, visual changes. She has been seen twice by other providers at urgent care centers for in her ear pain thinking it was ear infection. No drainage. No fevers. - History of Current Complaint Chief Complaint: EDEarPain Time Seen by Provider: 05/13/19 10:39 Hx Obtained From: Patient Onset/Duration: Sudden Onset Severity: Severe Associated Signs And Symptoms: Positive: Negative - Epiglottits Risk Factors Epiglottis Risk Factors: Negative - Allergies/Home Medications Allergies/Adverse Reactions: Allergies Allergy/AdvReac Type Severity Reaction Status Date / Time Penicillins Allergy Unknown Verified 05/13/19 08:35 Reaction Details Sulfa (Sulfonamide Allergy Shortness Verified 05/13/19 08:35 Antibiotics) of Breath Home Medications: Home Medications Dextroamphetamine/Amphetamine [Mydayis ER 50 mg Capsule] 50 mg PO DAILY [History Confirmed 05/13/19] FLUoxetine CAP* [PROzac CAP*] 10 mg PO DAILY 05/13/19 [History Confirmed ] FLUoxetine CAP* [PROzac CAP*] 20 mg PO DAILY 05/13/19 [History Confirmed ] PMH/Surg Hx/FS Hx/Imm Hx Previously Healthy: Yes Endocrine/Hematology History: Reports: Hx Anemia Denies: Hx Diabetes, Hx Thyroid Disease Cardiovascular History: Reports: Hx Hypertension Denies: Hx Auto Implanted Cardiovert Defib, Hx Coronary Artery Disease, Hx Pacemaker/ICD Respiratory History: Denies: Hx Asthma, Hx Chronic Obstructive Pulmonary Disease (COPD) GI History: Reports: Hx Gall Bladder Disease, Hx Gastroesophageal Reflux Disease , Hx Ulcer Denies: Hx Cirrhosis, Hx Crohn's Disease, Hx Diverticulosis, Hx Gastrointestinal Bleed, Hx Obstructive Bowel History: Reports: Hx Kidney Stones Denies: Hx Benign Prostatic Hyperplasia, Hx Renal Disease Sensory History: Denies: Hx Hearing Aid Neurological History: Reports: Hx Nerve Disease - Trigeminal neuralgia Psychiatric History: Reports: Hx Attention Deficit Hyperactivity Disorder, Hx Depression Denies: Hx Panic Disorder - Surgical History Surgery Procedure, Year, and Place: Urinary stricture 1974 ,. left radial nerve release 1991. 2004,. Gallbladder 2006,. 2007,. Gastric sleeve 2011,. mirena implant (safe to 3t) - Immunization History Hx Pertussis Vaccination: No Immunizations Up to Date: Yes Infectious Disease History: No Infectious Disease History: Denies: Hx Hepatitis, Hx Human Immunodeficiency Virus (HIV), Traveled Outside the [place] in Last 30 Days - Family History Known Family History: Positive: Hypertension - Social History Occupation: Employed Full-time Lives: With Family Alcohol Use: Rare Hx Substance Use: No Substance Use Type: Reports: None Hx Tobacco Use: No Smoking Status (MU): Never Smoked Tobacco Review of Systems Negative: Fever, Chills, Fatigue, Skin Diaphoresis Positive: Ear Ache - left inner ear pain Negative: Palpitations, Chest Pain Negative: Shortness Of Breath, Cough Genitourinary: Negative Positive: no symptoms reported, see HPI Negative: Arthralgia, Myalgia Skin: Negative Negative: Headache, Weakness, Paresthesia, Numbness, Syncope, Slurred Speech All Other Systems Reviewed And Are Negative: Yes Physical Exam Triage Information Reviewed: Yes Vital Signs On Initial Exam: Initial Vitals Temp Pulse Resp BP Pulse Ox 96.7 F 97 18 147/96 99 05/13/19 08:32 05/13/19 08:32 05/13/19 08:32 05/13/19 08:32 05/13/19 08:32 Vital Signs Reviewed: Yes Appearance: Positive: Well-Appearing, Well-Nourished Skin: Positive: Warm, Skin Color Reflects Adequate Perfusion Head/Face: Positive: Normal Head/Face Inspection Eyes: Positive: EOMI, CONSTANTINO, Conjunctiva Clear ENT: Positive: TMs normal. Negative: Nasal congestion, Nasal drainage, TM bulging, TM dull, TM red, Tonsillar swelling, Tonsillar exudate, Dental tenderness, Sinus tenderness Neck: Positive: Supple, Nontender, No Lymphadenopathy Respiratory/Lung Sounds: Positive: Clear to Auscultation, Breath Sounds Present Cardiovascular: Positive: RRR, Pulses are Symmetrical in both Upper and Lower Extremities Musculoskeletal: Positive: Normal, Strength/ROM Intact Neurological: Positive: Other - decreased sensation to the L side of the face/ cheek with pain to the L inner ear Psychiatric: Positive: Normal, Affect/Mood Appropriate Procedures - Sedation Patient Received Moderate/Deep Sedation with Procedure: No Diagnostics - Vital Signs Vital Signs Temp Pulse Resp BP Pulse Ox 05/13/19 15:24 93 124/82 96 05/13/19 15:00 77 93 05/13/19 14:55 74 134/90 98 05/13/19 14:24 95 137/94 98 05/13/19 14:00 78 97 05/13/19 13:54 80 125/80 97 05/13/19 12:30 75 142/87 96 05/13/19 12:00 70 133/89 96 05/13/19 11:59 85 96 05/13/19 08:32 96.7 F 97 18 147/96 99 - Laboratory Lab Statement: Any lab studies that have been ordered have been reviewed, and results considered in the medical decision making process. EENT Course/Dx - Course Course Of Treatment: During this course of treatment, the patient is evaluated for in her ear pain radiating to the left cheek. She states this is similar to her trigeminal neuralgia. She was recently increased her dose of gabapentin to 600 mg twice a day. She states despite this, she continues to have symptoms. Symptoms have been present times approximately 2 weeks but has been worsening. Discussed case with Dr. Alaniz who recommends an increase of gabapentin 600 mg 3 times daily. On reexamination, patient states she would like something for her "breakthrough pain." She appears uncomfortable. She is given 2 hydrocodone with minimal relief. Discussed again with Dr. Alaniz who recommends a loading dose of Dilantin of 1000 mg and will come see the patient in the ED. Dilantin 300mg at bedtime is prescribed per neurology. Pt is stable and OK for discharge at this time. No labs were drawn during todays visit. - Differential Diagnoses Differential Diagnoses: Other - inner ear pain, nerve pain, facial pain - Diagnoses Provider Diagnoses: Trigeminal neuralgia - Provider Notifications Discussed Care Of Patient With: Navin Alaniz Instructed by Provider To: MD Will See In ED Discharge ED - Sign-Out/Discharge Documenting (check all that apply): Patient Departure - Discharge Plan Condition: Stable Disposition: HOME Prescriptions: Gabapentin CAP(*) [Neurontin 300 CAP(*)] 600 mg PO TID #60 cap Phenytoin CAP(*) [Dilantin CAP(*)] 300 mg PO BEDTIME #30 cap.er Patient Education Materials: Phenytoin (By mouth) Referrals: Navin Alaniz MD [Medical Doctor] - Maricruz Loo MD [Primary Care Provider] - Additional Instructions: Neurontin 600mg three times daily Dilantin 300mg tab once daily at bedtime - Billing Disposition and Condition Condition: STABLE Disposition: Home
--- NOTE | 2019-05-13 20:14 | CONS ---
CONSULTATION NOTE: DATE OF CONSULT: 05/13/19 - EMERGENCY DEPT HISTORY OF PRESENT ILLNESS: Vannesa presented to the ED for left ear pain and left-sided facial pain that was of a burning and stabbing quality. She states that in the past 2 weeks she has made multiple trips to urgent care for ear pain and that today she came in because the pain had increased and she did not want it to get any worse. She describes pain has been an 8-9/10 and now states that her pain has decreased to 6/10 after receiving pain medication. The pain comes and goes, occurring 5 to 6 times a day. Chewing increases pain. She has recently started using string instruments again and reports that this may also be an aggravating factor. 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 She denies numbness or tinging to the left side of her face. On 04/07/19, she had 3 teeth pulled, including 2 wisdom teeth. PAST MEDICAL HISTORY: Significant for anemia, hypertension, and trigeminal neuralgia. MEDICATIONS: 1. Mydayis extended release. 2. Prozac. 3. Gabapentin 600 mg twice a day. ALLERGIES: PENICILLIN and SULFA. FAMILY HISTORY: hypertension. 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 PHYSICAL EXAM: Vital signs:Temp 96.7, HR 74 BPM, SPO2 98%, BP 134/90 She is alert and oriented. Well dressed and well groomed, sitting in stretcher. Funduscopic exam reveals sharp disc margins. Cranial nerves II through XII are intact except she does have some decreased facial sensation to left cheek. Heart rate is regular. Lung sounds are clear. She has normal strength and tone throughout and reflexes were symmetric and intact. No pronator drift. LABORATORY DATA: She had no labs drawn today. ASSESSMENT AND PLAN: Vannesa has had a flare-up of her trigeminal neuralgia shortly after having 3 teeth removed in March. We increased her gabapentin today to 600 mg 3 times a day and discussed side effects such as increased tiredness. She was given IV Dilantin in the emergency room and will be taking 300 mg Dilantin at night and we will see her in followup in 4 to 6 weeks. Discussed the side effects of the Dilantin, including fever, rash, and a feeling of drunkenness if level becomes toxic. She would like to discuss surgical options and will call us tomorrow to let us know if she would like to be referred to Dr. Dodd or to another provider. [id number]/[facility] #: [id number] [facility]
== END 2019-05-13 15:47 | disposition home or self-care (01) ==
LOC: ED 08:30
DX: G50.0 Trigeminal neuralgia (principal); H92.02 Otalgia, left ear; F90.9 Attention-deficit hyperactivity disorder, unspecified type
CPT/HCPCS: 96365; 99283; J1165; Q2009